=== PATIENT | male | born 1955 | race Caucasian/White ===

== ENCOUNTER → 2024-03-03 09:06 | Outpatient (REF) | payer MEDICARE, SELFPAY | LOC: HWRAD 09:06 | PROVIDERS: ATTENDING PHYSICIAN Nurse Practitioner Family | DX: R10.9 Unspecified abdominal pain (principal); M54.9 Dorsalgia, unspecified | CPT/HCPCS: 71101; 76775 ==

== ENCOUNTER 2024-03-17 06:10 | Day surgery (SDC) | payer MEDICARE, SELFPAY ==
[2024-03-17 07:10] VITALS: BP 143/99
[2024-03-17 07:20] VITALS: BMI 27.4
[2024-03-17 07:40] VITALS: BMI 27.4
[2024-03-17 09:01] VITALS: BP 120/83
[2024-03-17 09:15] VITALS: BP 133/94
[2024-03-17 09:30] VITALS: BP 127/91
== END 2024-03-17 09:45 | disposition home or self-care (01) ==
LOC: SDS 06:10
PROVIDERS: ATTENDING PHYSICIAN Internal Medicine Gastroenterology
DX: Z12.11 Encounter for screening for malignant neoplasm of colon (principal); K63.89 Other specified diseases of intestine; K64.8 Other hemorrhoids; Z87.19 Personal history of other diseases of the digestive system
CPT/HCPCS: 45380; 88305